=== PATIENT | female | born 1965 | race American Indian/Alaskan Native ===

== ENCOUNTER → 2016-10-09 | Outpatient (CLI) | payer BC, OTHER ==
--- NOTE | 2016-10-09 16:35 | US ---
EXAMINATION: Transvaginal pelvic ultrasound HISTORY: Menorrhagia COMPARISON: None TECHNIQUE: Grayscale, color Doppler, and spectral Doppler images obtained transvaginally. FINDINGS: The uterus is normal in size, contour, and echogenicity without a focal uterine mass. Endo metrial stripe thickness measures 1.2 cm, correlate with menstrual cycle. No significant free pelvic fluid. Both the left and right ovaries are normal in size, contour, and echogenicity demonstrating normal c olor and spectral Doppler flow. Small follicles are noted bilaterally measuring up to 1.5 cm. No adn exal masses. IMPRESSION: Grossly unremarkable transvaginal pelvic ultrasound.
== END | disposition home or self-care (01) ==
LOC: MW.US 11:19
PROVIDERS: ATTEND Family Medicine
DX: N92.0 Excessive and frequent menstruation with regular cycle (principal)
CPT/HCPCS: 76830; 76830-26

== ENCOUNTER 2016-10-31 06:33 | Day surgery (SDC) | payer BC, OTHER ==
[2016-10-30 11:05] LABS: CHLORIDE,CL 105 mmol/L (98-110); SODIUM,NA 138 mmol/L (136-146)
[~2016-10-31 06:33] MED LIST: Sodium Chloride 0.9% 10 ML Syringe FLUSH PRN; Sodium Chloride 0.9% 2.5 ML Syringe FLUSH PRN; ceFAZolin 2 GM in Premix Bag 1 BAG IV ONE
[2016-10-31] MEDS: Lactated Ringers 1,000 ML IV SCH ×2 (06:47→13:59)
[2016-10-31] MEDS ORDERED: Fluorescein 5 ML Vial ONE (06:50)
[2016-10-31] MEDS ORDERED: Ondansetron 4 MG/2 ML SDV ONE (07:09)
[2016-10-31] MEDS ORDERED: Rocuronium 10 MG/ML 10 ML Syringe ONE (07:09)
[2016-10-31] MEDS ORDERED: Dexamethasone 4 MG/ML 5 ML MDV ONE (07:09)
[2016-10-31] MEDS ORDERED: Propofol 200 MG/20 ML SDV ONE (07:10)
[2016-10-31] MEDS ORDERED: Midazolam 1 MG/ML 2 ML SDV ONE (07:10)
[2016-10-31] MEDS ORDERED: fentaNYL 250 MCG/5 ML SDV ONE (07:10)
--- NOTE | 2016-10-31 07:25 | PCM.PREANE ---
Preanesthetic Assessment - Anesthesia/Transfusion/Family Hx Anesthesia History: Prior Anesthesia Without Reaction Family History of Anesthesia Reaction: No Transfusion History: No Prior Transfusion(s) Intubation History: Unknown - Review of Systems General: No Symptoms Pulmonary: No Symptoms Cardiovascular: No Symptoms Gastrointestinal: No symptoms Neurological: No Symptoms Other: Reports: None - Physical Assessment O2 Sat by Pulse Oximetry: 96 Respiratory Rate: 16 Vital Signs: Last Vital Signs Temp 36.7 C 10/31/16 06:44 Pulse 87 10/31/16 06:44 Resp 16 10/31/16 06:44 BP 136/67 10/31/16 06:44 Pulse Ox 96 10/31/16 06:44 Height: 1.68 m Weight: 82.554 kg ASA Class: 2 Mental Status: Alert & Oriented x3 Dentition: Reports: Normal Dentition, Bridge (left lower (back side)) Thyro-Mental Finger Breadths: 3 Mouth Opening Finger Breadths: 3 ROM/Head Extension: Full Lungs: Clear to auscultation, Normal respiratory effort Cardiovascular: Regular Rate, Regular Rhythm - Lab Values: Laboratory Last Values WBC 8.99 K/uL (4.0-11.0) 10/30/16 10:28 RBC 4.21 M/uL (4.30-5.90) L 10/30/16 10:28 Hgb 10.6 g/dL (12.0-16.0) L 10/30/16 10:28 Hct 34.1 % (36.0-46.0) L 10/30/16 10:28 MCV 81.0 fL (80.0-98.0) 10/30/16 10:28 MCH 25.2 pg (27.0-32.0) L 10/30/16 10:28 MCHC 31.1 g/dL (31.0-37.0) 10/30/16 10:28 RDW Std Deviation 49.3 fl (28.0-62.0) 10/30/16 10:28 RDW Coeff of Kelvin 17 % (11.0-15.0) H 10/30/16 10:28 Plt Count 534 K/uL (150-400) H 10/30/16 10:28 MPV 8.80 fL (7.40-12.00) 10/30/16 10:28 Nucleated RBC % 0.0 /100WBC 10/30/16 10:28 Nucleated RBCs # 0 K/uL 10/30/16 10:28 Sodium 138 mmol/L (136-146) 10/30/16 10:28 Potassium 4.4 mmol/L (3.5-5.1) 10/30/16 10:28 Chloride 105 mmol/L (98-110) 10/30/16 10:28 Carbon Dioxide 24 mmol/L (21-31) 10/30/16 10:28 BUN 12 mg/dL (6.0-23.0) 10/30/16 10:28 Creatinine 0.7 mg/dL (0.6-1.5) 10/30/16 10:28 Est Cr Clr Drug Dosing 89.01 mL/min 10/30/16 10:28 Estimated GFR (MDRD) > 60.0 ml/min 10/30/16 10:28 Glucose 98 mg/dL (60-110) 10/30/16 10:28 Calcium 9.3 mg/dL (8.8-10.8) 10/30/16 10:28 HCG, Qual NEGATIVE (NEG) 10/30/16 10:28 Blood Type O POSITIVE 10/30/16 10:28 Antibody Screen POSITIVE 10/30/16 10:28 Antibody Identification Anti-Jka 10/30/16 10:28 Antigen Typing Jka Antigen - NEGATIVE 10/30/16 10:28 Crossmatch See Detail 10/30/16 10:28 - Allergies Allergies/Adverse Reactions: Allergies Allergy/AdvReac Type Severity Reaction Status Date / Time morphine Allergy felt like Verified 10/29/16 14:14 needles poking me Sulfa (Sulfonamide Allergy Rash Verified 06/14/16 01:50 Antibiotics) - Blood Blood Available: No - Anesthesia Plan Pre-Op Medication Ordered: None - Acknowledgements Anesthesia Type Planned: General Anesthesia Pt an Appropriate Candidate for the Planned Anesthesia: Yes Alternatives and Risks of Anesthesia Discussed w Pt/Guardian: Yes Pt/Guardian Understands and Agrees with Anesthesia Plan: Yes PreAnesthesia Questionnaire HEENT History: Reports: Allergic rhinitis, Impaired vision Other HEENT History: wears glasses/contacts Cardiovascular History: Reports: High cholesterol, Hypertension Respiratory History: Reports: None Gastrointestinal History: Reports: None Genitourinary History: Reports: None TRAIN STARTER History: Reports: Endometrial ablation, Musculoskeletal History: Reports: Arthritis, Back pain, chronic, Fracture Other Musculoskeletal History: hx fx arm Neurological History: Reports: None Psychiatric History: Reports: None Endocrine/Metabolic History: Reports: None, Other (see below) (impaired fasting glucose levels) Hematologic History: Reports: None Immunologic History: Reports: None Oncologic (Cancer) History: Reports: None Dermatologic History: Reports: None - Infectious Disease History Infectious Disease History: Reports: Chicken pox, Measles, Mumps - Past Surgical History Head Surgeries/Procedures: Reports: None HEENT Surgical History: Reports: None Cardiovascular Surgical History: Reports: None Female Surgical History: Reports: Breast biopsy, section, D&C, Endometrial ablation, Tubal ligation Other Female Surgeries/Procedures: breast lumpectomy x2, c/section x3, D&C, hysteroscopy with endometrial ablation Musculoskeletal Surgical History: Reports: None - SUBSTANCE USE Smoking Status *Q: Current Every Day Smoker (< 1/2 ppd) Tobacco Use Within Last Twelve Months: Cigarettes Recreational Drug Use History: No - HOME MEDS Home Medications: Home Meds Olopatadine [Patanol 0.1% Ophth Soln] 1 drop EYEBOTH ASDIRECTED 06/14/16 [ History] Acetaminophen [Tylenol Extra Strength] 1 - 2 tab PO ASDIRECTED PRN 10/29/16 [ History] Cetirizine HCl/Pseudoephedrine [ZyrTEC-D] 1 tab PO ASDIRECTED PRN 10/29/16 [ History] Cyclobenzaprine HCl 10 mg PO ASDIRECTED PRN 10/29/16 [History] Fluticasone Propionate [Flonase Allergy Relief] 1 spray NASBOTH DAILY PRN [History] Naproxen Sodium [Aleve] 220 mg PO ASDIRECTED PRN 10/29/16 [History] - CURRENT (IN HOUSE) MEDS Current Meds: Current Medications Lactated Ringer's (Ringers, Lactated) 1,000 mls @ 125 mls/hr IV ASDIRECTED SARTHAK Last Admin: 10/31/16 06:47 Dose: 125 mls/hr Sodium Chloride (Saline Flush) 10 ml FLUSH ASDIRECTED PRN PRN Reason: Keep Vein Open Sodium Chloride (Saline Flush) 2.5 ml FLUSH ASDIRECTED PRN PRN Reason: Keep Vein Open Discontinued Medications Dexamethasone (Dexamethasone) Confirm Administered Dose 20 mg .ROUTE .STK-MED ONE Stop: 10/31/16 07:10 Fentanyl (Sublimaze) Confirm Administered Dose 250 mcg .ROUTE .STK-MED ONE Stop: 10/31/16 07:11 Fluorescein Sodium (Ak-Fluor) Confirm Administered Dose 5 ml .ROUTE .STK-MED ONE Stop: 10/31/16 06:51 Cefazolin Sodium/Dextrose 2 gm (/ Premix) 50 mls @ 100 mls/hr IV ONETIME ONE Stop: 10/30/16 09:04 Midazolam HCl (Versed 1 Mg/Ml) Confirm Administered Dose 2 mg .ROUTE .STK-MED ONE Stop: 10/31/16 07:11 Ondansetron HCl (Zofran) Confirm Administered Dose 4 mg .ROUTE .STK-MED ONE Stop: 10/31/16 07:10 Propofol (Diprivan 20 Ml) Confirm Administered Dose 200 mg .ROUTE .STK-MED ONE Stop: 10/31/16 07:11 Rocuronium [place] (Zemuron) Confirm Administered Dose 100 mg .ROUTE .STK-MED ONE Stop: 10/31/16 07:10
[2016-10-31] MEDS ORDERED: HYDROmorphone 2 MG/ML Syringe ONE (08:03)
[2016-10-31] MEDS ORDERED: Promethazine 12.5 MG Supp RECTAL PRN (08:29)
[2016-10-31] MEDS ORDERED: Belladonna Alkaloids/Opium 16.2-30 MG Supp RECTAL ONE (08:30)
[2016-10-31] MEDS ORDERED: Ketorolac 30 MG/ML SDV ONE (09:03)
[2016-10-31] MEDS ORDERED: Ketorolac 30 MG/ML SDV IVPUSH ONE (09:08)
[2016-10-31] MEDS ORDERED: Promethazine 25 MG/ML SDV IM PRN (09:08)
[2016-10-31] MEDS ORDERED: Ondansetron 4 MG/2 ML SDV IVPUSH PRN (09:08)
[2016-10-31] MEDS ORDERED: Morphine 4 MG/ML Syringe IVPUSH PRN (09:08)
[2016-10-31] MEDS ORDERED: Neostigmine Methylsulfate 1 MG/ML 5 ML Syringe ONE (09:09)
--- NOTE | 2016-10-31 09:12 | PCM.OPNOTE ---
- General Post-Op/Procedure Note Date of Surgery/Procedure: 10/31/16 Pre Op Diagnosis: koby Post-Op Diagnosis: Same Anesthesia Technique: General ET tube Primary Surgeon: Chun Bell Primary Care Nurse: Adalgisa Gunderson EBL in mLs: 100 Complications: None Condition: Good
[2016-10-31] MEDS ORDERED: Octyl 2-Cyanoacrylate 1 Tube ONE (09:14)
[2016-10-31] MEDS: fentaNYL 100 MCG/2 ML SDV IVPUSH PRN ×2 (09:51→09:57)
--- NOTE | 2016-10-31 10:18 | PCM.POSTAN ---
POST ANESTHESIA ASSESSMENT - MENTAL STATUS Mental Status: alert, oriented - RESPIRATORY Respiratory Status: respiratory rate WNL, airway patent, O2 saturation stable - CARDIOVASCULAR CV Status: pulse rate WNL, blood pressure stable - GASTROINTESTINAL GI Status: no symptoms - PAIN Pain Score: 2 - POST OP HYDRATION Hydration Status: adequate & stable - OBSERVATIONS Free Text/Narrative:: no anesthesia problems
[2016-10-31] MEDS: Acetaminophen/oxyCODONE 325-5 MG Tab PO PRN ×3 (11:05→19:41)
[2016-10-31] MEDS ORDERED: Furosemide 40 MG/4 ML VIAL ONE (11:50)
[2016-10-31] MEDS: Ketorolac 30 MG/ML SDV IVPUSH PRN ×2 (13:54→22:02)
--- NOTE | 2016-10-31 14:30 | OR ---
SURGEON: Chun Bell MD DATE OF PROCEDURE: 10/31/2016 PREOPERATIVE DIAGNOSES: 1. Menometrorrhagia. 2. Pelvic pain. POSTOPERATIVE DIAGNOSES: 1. Menometrorrhagia. 2. Pelvic pain. OPERATION PERFORMED: Total laparoscopic hysterectomy, laparoscopic bilateral salpingo-oophorectomy, and cystoscopy. MANAGER NICU: VINICIO Lester. ANESTHESIA: General endotracheal intubation by Irma Huffman and Dr. Russell. ESTIMATED BLOOD LOSS: Less than 100 mL. COMPLICATIONS: None. FINDINGS: Uterus about 12 weeks size and minimum adhesions around the cervix from her previous sections. INDICATIONS FOR SURGERY: Refer to the admit note. PROCEDURE IN DETAIL: The patient was brought to the OR, properly identified, and after adequate level of general anesthesia, the patient was placed in lithotomy position with an access to the abdomen and the vagina. The patient was prepped and draped in sterile fashion as usual. Lindsay catheter was placed in bladder for drainage and the vaginal manipulator was placed into place and inflated appropriately. Then, the operation shifted abdominally. Stab wound done beneath the umbilicus. The Veress needle was placed in the peritoneal cavity and that cavity insufflated with 6 L of carbon dioxide. The skin incision was enlarged to accommodate the 5- mm trocar and 5-mm scope through it. Visiport technique was used to enter infraumbilically. Once we were in the peritoneal cavity, the patient was placed in steep Trendelenburg and 10-12 trocar placed in the left iliac fossa and 5-mm trocar in the right iliac fossa. The operation was started by retracting the intestine away from the operative field and identifying the landmark of the pelvis. There was a small adhesion around the left ovary from her previous section that is lysed easily without any problem. Then, the superior pedicle coagulated and transected using [id number] Harmonic scapula the tubes on both sides. The tubes and ovaries was included with the specimen. Then, the round ligament was coagulated and transected on both sides in the same manner. Then, the anterior leaf of the broad ligament dissected downward medially. The bladder was dissected and retracted completely away from the operative field. Then, the skeletonization of the uterine vessel done at the level of the vaginal rings and with the ureter away from harm's way, the uterine vessel was coagulated and transected on both sides. Once this was done, then the vagina was entered in a circular manner at the tip of the vaginal manipulator detaching the cervix from its attachment to the vagina. Once this was done, then the uterus, tubes, and ovaries removed vaginally and pneumoperitoneum re-established by placing vaginal pack in the vagina. Then, a thorough irrigation of the pelvis was done. There was no oozing and no bleeding. We proceeded to close the vaginal cuff laparoscopically with 2-0 PDS interrupted sutures. While we were doing that, we asked anesthesiologist to give the patient fluorescein and once we closed the vagina and inspecting of all the pedicle and there was no oozing and no bleeding, the abdomen was deflated and the patient was placed flat on the table and Lindsay catheter removed, cystoscopy was performed, the bladder was intact, both ureteric orifices were seen with the dye coming out from both of them. Thus, the patency of both ureters verified. Satisfied with these findings, instruments and sponge count was correct. The patient tolerated the procedure well, went to recovery room in a stable general condition. WILY / HANNAH /[id number]
--- NOTE | 2016-10-31 21:15 | PCM48HPAN ---
Post Anesthesia Note - EVALUATION WITHIN 48HRS OF ANESTHETIC Vital Signs in Normal Range: Yes Patient Participated in Evaluation: Yes Respiratory Function Stable: Yes Airway Patent: Yes Cardiovascular Function Stable: Yes Hydration Status Stable: Yes Pain Control Satisfactory: Yes Nausea and Vomiting Control Satisfactory: Yes Mental Status Recovered: Yes - COMMENTS/OBSERVATIONS Free Text/Narrative:: Pt up ambulating in room with no outward appearance of any discomfort or distress. Pt states she did not experience any problems with anesthesia. Does report some symptoms of CO2 retention in chest tissues. She states it seems to be improving.
[2016-11-01] MEDS: Acetaminophen/oxyCODONE 325-5 MG Tab PO PRN ×2 (00:11→08:09)
[2016-11-01] MEDS: Ketorolac 30 MG/ML SDV IVPUSH PRN (04:03)
[2016-11-01 05:59] LABS: CHLORIDE,CL 104 mmol/L (98-110); SODIUM,NA 138 mmol/L (136-146)
[2016-11-01 08:12] VITALS: BP 134/69
--- NOTE | 2016-11-01 08:31 | PCM.SURGPN ---
- General Info POD#: 1 Functional Status: Reports: pain controlled - Review of Systems General: Reports: No Symptoms HEENT: Reports: no symptoms Pulmonary: Reports: no symptoms Cardiovascular: Reports: No Symptoms Gastrointestinal: Reports: No symptoms Genitourinary: Reports: no symptoms Musculoskeletal: Reports: no symptoms Skin: Reports: no symptoms Neurological: Reports: No Symptoms Psychiatric: Reports: no symptoms - Patient Data Vitals - most recent: Last Vital Signs Temp 36.5 C 11/01/16 08:00 Pulse 85 11/01/16 08:00 Resp 20 11/01/16 08:00 BP 134/69 11/01/16 08:00 Pulse Ox 95 11/01/16 08:00 Weight - most recent: 82.554 kg I&O - last 24 hours: Intake & Output 10/31/16 11/01/16 11/01/16 22:59 06:59 14:59 Intake Total 3729 2200 Output Total 1600 3680 Balance 2129 -1480 Lab Results last 24 hrs: Laboratory Results - last 24 hr 11/01/16 11/01/16 Range/Units 04:51 04:51 WBC 12.81 H (4.0-11.0) K/uL RBC 3.67 L (4.30-5.90) M/uL Hgb 9.2 L (12.0-16.0) g/dL Hct 29.8 L (36.0-46.0) % MCV 81.2 (80.0-98.0) fL MCH 25.1 L (27.0-32.0) pg MCHC 30.9 L (31.0-37.0) g/dL RDW Std Deviation 49.4 (28.0-62.0) fl RDW Coeff of Kelvin 17 H (11.0-15.0) % Plt Count 492 H (150-400) K/uL MPV 8.90 (7.40-12.00) fL Neut % (Auto) 61.0 (48.0-80.0) % Lymph % (Auto) 30.5 (16.0-40.0) % [place] % (Auto) 8.2 (0.0-15.0) % Eos % (Auto) 0.2 (0.0-7.0) % Baso % (Auto) 0.1 (0.0-1.5) % Neut # (Auto) 7.8 H (1.4-5.7) K/uL Lymph # (Auto) 3.9 H (0.6-2.4) K/uL [place] # (Auto) 1.1 H (0.0-0.8) K/uL Eos # (Auto) 0.0 (0.0-0.7) K/uL Baso # (Auto) 0.0 (0.0-0.1) K/uL Nucleated RBC % 0.0 /100WBC Nucleated RBCs # 0 K/uL Sodium 138 (136-146) mmol/L Potassium 5.0 (3.5-5.1) mmol/L Chloride 104 (98-110) mmol/L Carbon Dioxide 24 (21-31) mmol/L BUN 8 (6.0-23.0) mg/dL Creatinine 0.7 (0.6-1.5) mg/dL Est Cr Clr Drug Dosing 89.01 mL/min Estimated GFR (MDRD) > 60.0 ml/min Glucose 109 (60-110) mg/dL Calcium 9.6 (8.8-10.8) mg/dL Med Orders - Current: Current Medications Fentanyl (Sublimaze) 50 mcg IVPUSH SEECOMMENT PRN PRN Reason: Pain (moderate 4-6) Last Admin: 10/31/16 09:57 Dose: 50 mcg Lactated Ringer's (Ringers, Lactated) 1,000 mls @ 125 mls/hr IV ASDIRECTED [facility] Last Infusion: 10/31/16 22:00 Dose: Infused Ketorolac Tromethamine (Toradol) 30 mg IVPUSH Q6H PRN PRN Reason: Pain (severe 7-10) Stop: 11/05/16 09:08 Last Admin: 11/01/16 04:03 Dose: 30 mg Ondansetron HCl (Zofran) 4 mg IVPUSH Q6H PRN PRN Reason: Nausea/Vomiting Oxycodone/Acetaminophen (Percocet 325-5 Mg) 2 tab PO Q4H PRN PRN Reason: Pain (moderate 4-6) Last Admin: 11/01/16 08:09 Dose: 2 tab Promethazine HCl (Phenadoz) 12.5 - 25 mg RECTAL ASDIRECTED PRN PRN Reason: Nausea/Vomiting Promethazine HCl (Phenergan) 25 mg IM Q6H PRN PRN Reason: Nausea/Vomiting Sodium Chloride (Saline Flush) 10 ml FLUSH ASDIRECTED PRN PRN Reason: Keep Vein Open Sodium Chloride (Saline Flush) 2.5 ml FLUSH ASDIRECTED PRN PRN Reason: Keep Vein Open Discontinued Medications Belladonna Alkaloids/Opium (B & O Supprettes No. 15a) 1 supp RECTAL ONETIME ONE Stop: 10/31/16 08:31 Last Admin: 10/31/16 20:00 Dose: Not Given Dexamethasone (Dexamethasone) Confirm Administered Dose 20 mg .ROUTE .STK-MED ONE Stop: 10/31/16 07:10 Fentanyl (Sublimaze) Confirm Administered Dose 250 mcg .ROUTE .STK-MED ONE Stop: 10/31/16 07:11 Fluorescein Sodium (Ak-Fluor) Confirm Administered Dose 5 ml .ROUTE .STK-MED ONE Stop: 10/31/16 06:51 Furosemide (Lasix) Confirm Administered Dose 40 mg .ROUTE .STK-MED ONE Stop: 10/31/16 11:51 Glycopyrrolate () Confirm Administered Dose 1 mg .ROUTE .STK-MED ONE Stop: 10/31/16 09:10 Hydromorphone HCl (Dilaudid) Confirm Administered Dose 2 mg .ROUTE .STK-MED ONE Stop: 10/31/16 08:04 Cefazolin Sodium/Dextrose 2 gm (/ Premix) 50 mls @ 100 mls/hr IV ONETIME ONE Stop: 10/30/16 09:04 Cefazolin Sodium/Dextrose (Ancef) Confirm Administered Dose 100 mls @ as directed .ROUTE .STK-MED ONE Stop: 10/31/16 07:53 Ketorolac Tromethamine (Toradol) Confirm Administered Dose 30 mg .ROUTE .STK- MED ONE Stop: 10/31/16 09:04 Ketorolac Tromethamine (Toradol) 30 mg IVPUSH ONETIME ONE Stop: 10/31/16 09:09 Last Admin: 10/31/16 20:00 Dose: Not Given Midazolam HCl (Versed 1 Mg/Ml) Confirm Administered Dose 2 mg .ROUTE .STK-MED ONE Stop: 10/31/16 07:11 Morphine Sulfate (Morphine) 4 mg IVPUSH Q2H PRN PRN Reason: Pain (severe 7-10) Neostigmine Methylsulfate (Neostigmine) Confirm Administered Dose 5 mg .ROUTE .STK-MED ONE Stop: 10/31/16 09:10 Octyl Cyanoacrylate (Dermabond Advance) Confirm Administered Dose 1 applic .ROUTE .STK-MED ONE Stop: 10/31/16 09:15 Ondansetron HCl (Zofran) Confirm Administered Dose 4 mg .ROUTE .STK-MED ONE Stop: 10/31/16 07:10 Propofol (Diprivan 20 Ml) Confirm Administered Dose 200 mg .ROUTE .STK-MED ONE Stop: 10/31/16 07:11 Rocuronium [place] (Zemuron) Confirm Administered Dose 100 mg .ROUTE .STK-MED ONE Stop: 10/31/16 07:10 - Exam Wound/Incisions: healing well General: alert, oriented HEENT: Pupils equal Neck: supple Lungs: Clear to auscultation, Normal respiratory effort Cardiovascular: Regular Rate, Regular Rhythm Abdomen: bowel sounds present, soft, no tenderness, no distension Extremities: no edema Skin: warm, dry, intact Neurological: no new focal deficit Psy/Mental Status: alert, normal affect, normal mood - Problem List Review Problem List Initiated/Reviewed/Updated: Yes - My Orders Last 24 Hours: Active Orders 24 hr Category Date Time Status Patient Status [ADT] Routine ADT 10/31/16 09:08 Active Notify Provider Vital Signs [RC] ASDIRECTED Care 10/31/16 09:08 Active RT Incentive Spirometry [RC] Q2HWA Care 10/31/16 09:08 Active Up With Assistance [RC] PER UNIT ROUTINE Care 10/31/16 09:08 Active Up ad Mariya [RC] PER UNIT ROUTINE Care 10/31/16 09:08 Active Urinary Catheter Removal [RC] Per Unit Routine Care 10/31/16 09:08 Active Regular Diet [DIET] Diet 10/31/16 Lunch Active Acetaminophen/oxyCODONE [Percocet 325-5 MG] Med 10/31/16 09:08 Active 2 tab PO Q4H PRN Ketorolac [Toradol] Med 10/31/16 09:08 Active 30 mg IVPUSH Q6H PRN Ondansetron [Zofran] Med 10/31/16 09:08 Active 4 mg IVPUSH Q6H PRN Promethazine [Phenadoz] Med 10/31/16 08:29 Active 12.5 - 25 mg RECTAL ASDIRECTED PRN Promethazine [Phenergan] Med 10/31/16 09:08 Active 25 mg IM Q6H PRN fentaNYL [Sublimaze] Med 10/31/16 08:29 Active 50 mcg IVPUSH SEECOMMENT PRN Peripheral IV Discontinue [OM.PC] Routine Oth 10/31/16 09:08 Ordered Sequential Compression Device [OM.PC] Per Unit Routine Oth 10/31/16 09:08 Ordered Resuscitation Status Routine Resus Stat 10/31/16 09:08 Ordered Medication Orders Fentanyl (Sublimaze) 50 mcg IVPUSH SEECOMMENT PRN PRN Reason: Pain (moderate 4-6) Last Admin: 10/31/16 09:57 Dose: 50 mcg Admin: 10/31/16 09:51 Dose: 50 mcg Lactated Ringer's (Ringers, Lactated) 1,000 mls @ 125 mls/hr IV ASDIRECTED SARTHAK Last Infusion: 10/31/16 22:00 Dose: 125 mls/hr Admin: 10/31/16 13:59 Dose: 125 mls/hr Infusion: 10/31/16 13:59 Dose: 125 mls/hr Admin: 10/31/16 06:47 Dose: 125 mls/hr Ketorolac Tromethamine (Toradol) 30 mg IVPUSH Q6H PRN PRN Reason: Pain (severe 7-10) Stop: 11/05/16 09:08 Last Admin: 11/01/16 04:03 Dose: 30 mg Admin: 10/31/16 22:02 Dose: 30 mg Admin: 10/31/16 13:54 Dose: 30 mg Ondansetron HCl (Zofran) 4 mg IVPUSH Q6H PRN PRN Reason: Nausea/Vomiting Oxycodone/Acetaminophen (Percocet 325-5 Mg) 2 tab PO Q4H PRN PRN Reason: Pain (moderate 4-6) Last Admin: 11/01/16 08:09 Dose: 2 tab Admin: 11/01/16 00:11 Dose: 2 tab Admin: 10/31/16 19:41 Dose: 2 tab Admin: 10/31/16 15:21 Dose: 2 tab Admin: 10/31/16 11:05 Dose: 2 tab Promethazine HCl (Phenadoz) 12.5 - 25 mg RECTAL ASDIRECTED PRN PRN Reason: Nausea/Vomiting Promethazine HCl (Phenergan) 25 mg IM Q6H PRN PRN Reason: Nausea/Vomiting Sodium Chloride (Saline Flush) 10 ml FLUSH ASDIRECTED PRN PRN Reason: Keep Vein Open Sodium Chloride (Saline Flush) 2.5 ml FLUSH ASDIRECTED PRN PRN Reason: Keep Vein Open - Assessment Assessment (Free Text/Narrative):: Status post T. LH BSO her postoperative day #1 the patient on regular diet and moving well voiding without any problem had lab work is within normal - Plan Plan (Free Text/Narrative):: I'm sending the patient home today with a post hysterectomy instruction and prescription for Percocet 7.5/325 for postoperative pain the patient have a followup appointment in the office in 2 weeks
--- NOTE | 2016-11-01 08:32 | PCM.DCSUM1 ---
Discharge Summary - Discharge Data Discharge Date: 11/01/16 Discharge Disposition: Home, Self-Care 01 Condition: Good - Patient Instructions Diet: Usual Diet as Tolerated Driving: Do Not Drive Showering/Bathing: May Shower Wound/Incision Care: Keep Operative Site/Wound Site Clean and Dry Notify Provider of: Fever, Increased Pain, Swelling and Redness, Drainage, Nausea and/or Vomiting - Discharge Plan Home Medications: Home Meds Olopatadine [Patanol 0.1% Ophth Soln] 1 drop EYEBOTH ASDIRECTED 06/14/16 [ History] Acetaminophen [Tylenol Extra Strength] 1 - 2 tab PO ASDIRECTED PRN 10/29/16 [ History] Cetirizine HCl/Pseudoephedrine [ZyrTEC-D] 1 tab PO ASDIRECTED PRN 10/29/16 [ History] Cyclobenzaprine HCl 10 mg PO ASDIRECTED PRN 10/29/16 [History] Fluticasone Propionate [Flonase Allergy Relief] 1 spray NASBOTH DAILY PRN [History] Naproxen Sodium [Aleve] 220 mg PO ASDIRECTED PRN 10/29/16 [History] Patient Handouts: Acetaminophen; Oxycodone tablets, Laparoscopically Assisted Vaginal Hysterectomy, Care After Referrals: Chun Bell MD [Physician] - 11/11/16 9:30 am - General Info Date of Service: 11/01/16 Functional Status: Reports: pain controlled - Review of Systems General: Reports: No Symptoms HEENT: Reports: no symptoms Pulmonary: Reports: no symptoms Cardiovascular: Reports: No Symptoms Gastrointestinal: Reports: No symptoms Genitourinary: Reports: no symptoms Musculoskeletal: Reports: no symptoms Skin: Reports: no symptoms Neurological: Reports: No Symptoms Psychiatric: Reports: no symptoms - Patient Data Vitals - Most Recent: Last Vital Signs Temp 36.5 C 11/01/16 08:00 Pulse 85 11/01/16 08:00 Resp 20 11/01/16 08:00 BP 134/69 11/01/16 08:00 Pulse Ox 95 11/01/16 08:00 Weight - Most Recent: 82.554 kg I&O - Last 24 hours: Intake & Output 10/31/16 11/01/16 11/01/16 22:59 06:59 14:59 Intake Total 3729 2200 Output Total 7611 5940 Balance 2129 -1480 Lab Results - Last 24 hrs: Laboratory Results - last 24 hr 11/01/16 11/01/16 Range/Units 04:51 04:51 WBC 12.81 H (4.0-11.0) K/uL RBC 3.67 L (4.30-5.90) M/uL Hgb 9.2 L (12.0-16.0) g/dL Hct 29.8 L (36.0-46.0) % MCV 81.2 (80.0-98.0) fL MCH 25.1 L (27.0-32.0) pg MCHC 30.9 L (31.0-37.0) g/dL RDW Std Deviation 49.4 (28.0-62.0) fl RDW Coeff of Kelvin 17 H (11.0-15.0) % Plt Count 492 H (150-400) K/uL MPV 8.90 (7.40-12.00) fL Neut % (Auto) 61.0 (48.0-80.0) % Lymph % (Auto) 30.5 (16.0-40.0) % [place] % (Auto) 8.2 (0.0-15.0) % Eos % (Auto) 0.2 (0.0-7.0) % Baso % (Auto) 0.1 (0.0-1.5) % Neut # (Auto) 7.8 H (1.4-5.7) K/uL Lymph # (Auto) 3.9 H (0.6-2.4) K/uL [place] # (Auto) 1.1 H (0.0-0.8) K/uL Eos # (Auto) 0.0 (0.0-0.7) K/uL Baso # (Auto) 0.0 (0.0-0.1) K/uL Nucleated RBC % 0.0 /100WBC Nucleated RBCs # 0 K/uL Sodium 138 (136-146) mmol/L Potassium 5.0 (3.5-5.1) mmol/L Chloride 104 (98-110) mmol/L Carbon Dioxide 24 (21-31) mmol/L BUN 8 (6.0-23.0) mg/dL Creatinine 0.7 (0.6-1.5) mg/dL Est Cr Clr Drug Dosing 89.01 mL/min Estimated GFR (MDRD) > 60.0 ml/min Glucose 109 (60-110) mg/dL Calcium 9.6 (8.8-10.8) mg/dL Med Orders - Current: Current Medications Fentanyl (Sublimaze) 50 mcg IVPUSH SEECOMMENT PRN PRN Reason: Pain (moderate 4-6) Last Admin: 10/31/16 09:57 Dose: 50 mcg Lactated Ringer's (Ringers, Lactated) 1,000 mls @ 125 mls/hr IV ASDIRECTED SARTHAK Last Infusion: 10/31/16 22:00 Dose: Infused Ketorolac Tromethamine (Toradol) 30 mg IVPUSH Q6H PRN PRN Reason: Pain (severe 7-10) Stop: 11/05/16 09:08 Last Admin: 11/01/16 04:03 Dose: 30 mg Ondansetron HCl (Zofran) 4 mg IVPUSH Q6H PRN PRN Reason: Nausea/Vomiting Oxycodone/Acetaminophen (Percocet 325-5 Mg) 2 tab PO Q4H PRN PRN Reason: Pain (moderate 4-6) Last Admin: 11/01/16 08:09 Dose: 2 tab Promethazine HCl (Phenadoz) 12.5 - 25 mg RECTAL ASDIRECTED PRN PRN Reason: Nausea/Vomiting Promethazine HCl (Phenergan) 25 mg IM Q6H PRN PRN Reason: Nausea/Vomiting Sodium Chloride (Saline Flush) 10 ml FLUSH ASDIRECTED PRN PRN Reason: Keep Vein Open Sodium Chloride (Saline Flush) 2.5 ml FLUSH ASDIRECTED PRN PRN Reason: Keep Vein Open Discontinued Medications Belladonna Alkaloids/Opium (B & O Supprettes No. 15a) 1 supp RECTAL ONETIME ONE Stop: 10/31/16 08:31 Last Admin: 10/31/16 20:00 Dose: Not Given Dexamethasone (Dexamethasone) Confirm Administered Dose 20 mg .ROUTE .STK-MED ONE Stop: 10/31/16 07:10 Fentanyl (Sublimaze) Confirm Administered Dose 250 mcg .ROUTE .STK-MED ONE Stop: 10/31/16 07:11 Fluorescein Sodium (Ak-Fluor) Confirm Administered Dose 5 ml .ROUTE .[facility]-MED ONE Stop: 10/31/16 06:51 Furosemide (Lasix) Confirm Administered Dose 40 mg .ROUTE .[facility]-MED ONE Stop: 10/31/16 11:51 Glycopyrrolate () Confirm Administered Dose 1 mg .ROUTE .ST-MED ONE Stop: 10/31/16 09:10 Hydromorphone HCl (Dilaudid) Confirm Administered Dose 2 mg .ROUTE .[facility]-MED ONE Stop: 10/31/16 08:04 Cefazolin Sodium/Dextrose 2 gm (/ Premix) 50 mls @ 100 mls/hr IV ONETIME ONE Stop: 10/30/16 09:04 Cefazolin Sodium/Dextrose (Ancef) Confirm Administered Dose 100 mls @ as directed .ROUTE .[facility]-MED ONE Stop: 10/31/16 07:53 Ketorolac Tromethamine (Toradol) Confirm Administered Dose 30 mg .ROUTE .[facility]- MED ONE Stop: 10/31/16 09:04 Ketorolac Tromethamine (Toradol) 30 mg IVPUSH ONETIME ONE Stop: 10/31/16 09:09 Last Admin: 10/31/16 20:00 Dose: Not Given Midazolam HCl (Versed 1 Mg/Ml) Confirm Administered Dose 2 mg .ROUTE .[facility]-MED ONE Stop: 10/31/16 07:11 Morphine Sulfate (Morphine) 4 mg IVPUSH Q2H PRN PRN Reason: Pain (severe 7-10) Neostigmine Methylsulfate (Neostigmine) Confirm Administered Dose 5 mg .ROUTE .[facility]-MED ONE Stop: 10/31/16 09:10 Octyl Cyanoacrylate (Dermabond Advance) Confirm Administered Dose 1 applic .ROUTE .[facility]-MED ONE Stop: 10/31/16 09:15 Ondansetron HCl (Zofran) Confirm Administered Dose 4 mg .ROUTE .[facility]-MED ONE Stop: 10/31/16 07:10 Propofol (Diprivan 20 Ml) Confirm Administered Dose 200 mg .ROUTE .ST-MED ONE Stop: 10/31/16 07:11 Rocuronium Rosalie (Zemuron) Confirm Administered Dose 100 mg .ROUTE .[facility] ONE Stop: 10/31/16 07:10 - Exam General: Reports: alert, oriented HEENT: Reports: Pupils equal, Pupils reactive, EOMI, Mucous membr. moist/pink Neck: Reports: supple Lungs: Reports: Clear to auscultation, Normal respiratory effort Cardiovascular: Reports: Regular Rate, Regular Rhythm Abdomen: Reports: bowel sounds present, soft, no tenderness, no distension (Female) Exam: Normal External Exam, Normal Speculum Exam, Normal Bimanual Exam Rectal (Female) Exam: Normal Exam, Normal Rectal Tone Back Exam: Reports: Normal Inspection, Full Range of Motion Extremities: Reports: no edema, normal pulses Skin: Reports: warm, dry, intact Wound/Incisions: Reports: healing well Neurological: Reports: no new focal deficit Psy/Mental Status: Reports: alert, normal affect, normal mood *Q Meaningful Use (DIS) - VTE *Q VTE Criteria *Q: - Stroke *Q Stroke Criteria *Q: - AMI *Q AMI Criteria *Q:
== END 2016-11-01 10:50 | disposition home or self-care (01) ==
LOC: MW.SDS 06:33 → MW.MS 09:08 → MW.SDS 11-01 10:50
PROVIDERS: ATTEND Obstetrics & Gynecology
DX: N92.1 Excessive and frequent menstruation with irregular cycle (principal); R10.2 Pelvic and perineal pain; N80.0 Endometriosis of uterus; N80.1 Endometriosis of ovary; N83.11 Corpus luteum cyst of right ovary
CPT/HCPCS: 36415; 58571; 80048; 84703; 85025; 85027; 86850; 86870; 86900; 86901; 86902; 86920; 86921; 86922; A9270; J0690; J1100; J1170; J1885; J1940; J2250; J2405; J3010; J7120; 00944; 88307; J2704